=== PATIENT | male | born 1970 ===

== ENCOUNTER 2017-08-06 10:29 | Day surgery (SDC) | payer BC ==
[2017-08-06] VITALS (9 sets, daily range): BP systolic 114–146; BP diastolic 64–89
[~2017-08-06] VITALS: Ht 175.3 cm; Wt 117.9 kg
--- NOTE | 2017-08-06 08:35 | Pre-Procedure Note/Attestation ---
Pre-Procedure Note/Attestation Complete Prior to Procedure Planned Procedure: left Procedure Narrative: left knee scope, medial and lateral meniscectomy and chondroplasty Indications for Procedure Pre-Operative Diagnosis: left knee medial and lateral meniscus tear Attestation I attest that I discussed the nature of the procedure; its benefits; risks and complications; and alternatives (and the risks and benefits of such alternatives ), prior to the procedure, with the patient (or the patient's legal service liaison representative). I attest that, if there was a reasonable possibility of needing a blood transfusion, the patient (or the patient's legal service liaison representative) was given the [facility] standardized written summary, pursuant to the [place] Blood Safety Act ([place] Health and Safety Code # 1645, as amended). I attest that I re-evaluated the patient just prior to the surgery and that there has been no change in the patient's H&P, except as documented below: none MICHI FRY Aug 06, 2017 08:35
[~2017-08-06 10:29] MED LIST: ceFAZolin 1gm in D5W 55ml IVP ONE; celeBREX 200mg Cap **SURGERY PATIENTS ONLY ORAL ONE; oxyCONTIN 20mg tab ORAL ONE
[2017-08-06] MEDS ORDERED: Tylenol #3 tab (300mg/30mg) ORAL PRN (12:30)
[2017-08-06] MEDS ORDERED: HYDROmorphone 1mg/ml Carpuject SUBQ PRN (12:30)
[2017-08-06] MEDS ORDERED: Norco 5mg/325mg tab ORAL PRN (12:30)
[2017-08-06] MEDS ORDERED: D5 1/2NS 1,000 ML IV SCH (12:30)
[2017-08-06] MEDS ORDERED: Propofol 200mg/20ml IV ONE (12:45)
[2017-08-06] MEDS ORDERED: Ropivacaine 5mg/ml Vial 30ml INJ ONE (12:46)
[2017-08-06] MEDS ORDERED: LR 1000ml ONE (13:00)
[2017-08-06] MEDS ORDERED: Midazolam 2mg/2ml Inj ONE (13:00)
[2017-08-06] MEDS ORDERED: Ketorolac 30mg Inj ONE (13:00)
[2017-08-06] MEDS ORDERED: fentaNYL 100 mcg/2 mL IV ONE (13:00)
[2017-08-06] MEDS ORDERED: NS Irrig 4000ml IRRIG ONE ×2 (13:00→13:31)
--- NOTE | 2017-08-06 13:12 | Brief Operative Note ---
Immediate Post Operative Note Operative Note Chief Complaint: left knee pain Pre-op Diagnosis: left knee medial and lateral meniscus tear Procedure: left knee scope, medial and lateral meniscectomy Post-op Diagnosis: same as pre-op Findings: consistent w/pre-op dx studies Surgeon: md bon Granular Operator: milvia nina Anesthesiologist: md vineet Anesthesia: general Specimen: none Complications: none Condition: stable Fluids: ns Estimated Blood Loss: minimal Drains: none Implant(s) used?: No ELIZABETH NINA Aug 06, 2017 13:12
[2017-08-06] MEDS ORDERED: LR 1000ml 1,000 ML IVLG SCH (13:32)
--- NOTE | 2017-08-06 13:32 | Anethesia Preoperative Eval ---
Anesthesia Pre-op PMH/ROS General Date of Evaluation: Aug 06, 2017 Time of Evaluation: 12:48 Anesthesiologist: Ebony ASA Score: ASA 2 Mallampati Score Class I : Soft palate, uvula, fauces, pillars visible Class II: Soft palate, uvula, fauces visible Class III: Soft palate, base of uvula visible Class IV: Only hard plate visible Mallampati Classification: Class III Surgeon: Donn Diagnosis: L knee pain Surgical Procedure: L knee scope Anesthesia History: none Family History: no anesthesia problems Allergies: Coded Allergies: No Known Allergies (Unverified , 08/02/17) Past Medical History Cardiovascular: Denies: HTN, CAD, [place], valve dz, arrhythmia, other Pulmonary: Reports: DORETHA - mashine at home, Denies: asthma, COPD, other Gastrointestinal/Genitourinary: Reports: GERD Neurologic/Psychiatric: Denies: dementia, CVA, depression/anxiety, TIA, other Endocrine: Denies: DM, hypothyroidism, steroids, other HEENT: Denies: cataract (L), cataract (R), glaucoma, POARCH (L), POARCH (R), other Hematology/Immune: Denies: anemia, DVT, bleeding disorder, other Musculoskeletal/Integumentary: Denies: OA, RA, DJD, DDD, edema, other Other: obesity PMH Narrative: as above PSxH Narrative: septoplasty Anesthesia Pre-op Phys. Exam Physician Exam Last Vital Signs Date Time Temp Pulse Resp B/P (MAP) Pulse Ox O2 Delivery O2 Flow Rate FiO2 08/06/17 11:25 98.9 74 18 135/89 96 Room Air Constitutional: NAD Neurologic: CN 2-12 intact Cardiovascular: RRR, no M/R/G Respiratory: CTA Gastrointestinal: other - obesity Airway Exam Mallampati Score: Class III MO: limited Neck: short ROM: limited Teeth: intact Dentures: no upper, no lower Anesthesia Pre-op A/P Labs see chart Studies Pre-op Studies: EKG - NSR Risk Assessment & Plan Assessment: ASA 2 Plan: GA with LMA Status Change Before Surgery: No Pre-Antibiotics Drug: Ancef 2 gr. Given Within 1 Hr of Incision: Yes Time Given: 13:22 ANGIE CAN M.D. Aug 06, 2017 13:32
[2017-08-06] MEDS ORDERED: Ketorolac 30mg Inj IV PRN (13:45)
[2017-08-06] MEDS ORDERED: Hydromorphone 0.5mg/0.5ml inj IVP PRN (13:45)
[2017-08-06] MEDS ORDERED: Meperidine 50mg/ml Inj(FOR RIGORS ONLY) IV PRN (13:45)
[2017-08-06] MEDS ORDERED: DiphenhydrAMINE 50mg/ml Inj IVP PRN (13:45)
--- NOTE | 2017-08-06 14:27 | Immediate Post-Op Evaluation ---
Immediate Post-Op Evalulation Immediate Post-Op Evalulation Procedure: L knee arthroscopy meniscectomy Date of Evaluation: Aug 06, 2017 Time of Evaluation: 14:26 IV Fluids: 1200 Blood Products: none Estimated Blood Loss: min Urinary Output: none Blood Pressure Systolic: 134 Blood Pressure Diastolic: 72 Pulse Rate: 86 Respiratory Rate: 20 O2 Sat by Pulse Oximetry: 99 Temperature (Fahrenheit): 97.7 Pain Score (1-10): 2 Nausea: No Vomiting: No Complications none Patient Status: awake, patent, none Hydration Status: adequate ANGIE CAN M.D. Aug 06, 2017 14:27
--- NOTE | 2017-08-06 14:29 | 48 Hour Post Anesthesia Eval ---
Post Anesthesia Evaluation Procedure: L knee arthroscopy meniscectomy Date of Evaluation: Aug 06, 2017 Time of Evaluation: 14:58 Blood Pressure Systolic: 142 0: 74 Pulse Rate: 68 Respiratory Rate: 22 Temperature (Fahrenheit): 97.4 O2 Sat by Pulse Oximetry: 99 Airway: patent Nausea: No Vomiting: No Pain Intensity: 2 Hydration Status: adequate Cardiopulmonary Status: stable Mental Status/LOC: patient returned to baseline Follow-up Care/Observations: n/a Post-Anesthesia Complications: none Follow-up care needed: ready to discharge ANGIE CAN M.D. Aug 06, 2017 14:29
--- NOTE | 2017-08-06 23:00 | Operative Note - Dictated ---
DATE OF OPERATION: 08/06/2017 PREOP DX: 1. Left knee lateral meniscus tear. 2. Left knee medial meniscus tear. POSTOP DX: 1. Left knee complex tear of the posterior horn and body of the lateral meniscus involving 50% of the lateral meniscus. 2. 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 3. Left knee central trochlear groove chondral damage grade 3/grade 4 measuring 2 x 3 cm in the central portion of the chondral groove. 4. Left knee posterior horn and body of the medial meniscus tearing involving 15% of the posterior horn body of the medial meniscus. 5. Loose fragment in the anterior aspect of the knee in front of the anterior cruciate ligament measuring 7 mm. PROCEDURES: 1. Left knee arthroscopy and extensive intra-articular shaving. 2. Left knee patellofemoral chondroplasty. 3. Left knee partial lateral meniscectomy involving 50% of the posterior horn body of the lateral meniscus. 4. Partial medial meniscectomy involving 15% of posterior horn body of the medial meniscus. 5. Left knee lateral compartment chondroplasty involving tibial plateau. 6. Removal of loose fragment in front of the ACL measuring 7 mm consisting of a chondral loose fragment. SURGEON: Elías Pop M.D. BAR HOST: Lynn Stuart PA-C. Truss Maker was present during the actual operative portion of the case and was important and essential part of the operation. During the operation, the administrative office assistant held and operated the arthroscopic camera for visualization, assisted by manipulating the leg to help with visualization, and helped with essential parts of the repair process as necessary such as operating surgical instruments under surgeon supervision, suture management, and wound closures. ANESTHESIOLOGIST: Bayron Beck M.D. ANESTHESIA: General LMA anesthesia. TOURNIQUET TIME: 25 minutes. EBL: Minimal. COMPLICATIONS: None. SURGICAL INDICATION: Patient is a 47-year-old male who sustained the above injury to his knee. The patient was treated non-operative initially, but this did not alleviate the patients symptoms. Therefore, after discussing all non-surgical and surgical options, and discussing all foreseeable risk and benefits of surgery, the patient opted for surgical treatment as described above. PATIENT POSITIONING: Patient was brought to the operating room table and placed supine. All pressure points were well padded. General Anesthesia was induced and a well padded tourniquet was placed on the thigh. The lateral post was placed and positioned to allow for opening of the medial compartment of the knee without placing pressure over the fibular head. Patients entire leg was prepped and draped in the usual sterile fashion. Time out was performed and preop abx was given and after exsanguinating the lower extremity, the tourniquet was inflated to 275 mm of mercury. EXAMINATION OF THE KNEE UNDER ANESTHESIA: Before prepping and draping the knee and while the patient was relaxed under general anesthesia, the knee was examined for ROM, and anterior and posterior, medial and lateral, posterolateral, and posteromedial instability. Pivot shift testing was performed. There was no evidence of loss of motion or instability and the pivot shift testing was negative. PORTAL PLACEMENT: The lateral portal was placed with the knee flexed to 90 degrees at the level of inferior border of the patella in line with the lateral border of the patella. A cm skin incision was made with an eleven blade, and using a blunt obturator, the capsule was gently penetrated. Sterile saline solution was then infused inside the knee with the aid of a pump set at 35 mm mercury pressure. Under direct visualization, placement of the medial portal was preliminary judged using a spinal needle, and it was subsequently established using the same technique as the lateral portal. Care was given not to injure the cutaneous branches of the medial Saphenous nerve or the subcutaneous veins. DIAGNOSTIC ARTHROSCOPY: The suprapatellar patellar pouch was visualized. There was no evidence of scar tissue or loose fragments. The medial and lateral patellar facets and trochlear groove articular cartilage was visualized. There was some chondral damage underneath the patella and over the central trochlear groove. This was measuring 2 x 3 cm underneath the central trochlear groove. This was grade 2 chondromalacia with some unstable chondral flap. The medial plica shelf and the corresponding medial femoral condyle articular cartilage were visualized. There was extra medial plica shelf. The lateral gutter and the posterolateral corner of the knee were visualized. There were no loose bodies, and the popliteus tendon and other structures of the posterolateral corner of the knee were intact intra-articularly. At this point, the knee was placed in the figure of four position and the lateral compartment was entered. The lateral femoral condyle, lateral tibial plateau, and the anterior, body, and the posterior horn of the lateral meniscus were visualized and probed. There was a large chondral damage over the posterolateral aspect of the knee measuring 2 x 1 cm. This was over the lateral tibial plateau right over the lateral meniscus tear. The lateral meniscus had a significant tear involving 50% of the posterior horn body of the lateral meniscus. The knee was then placed at 90 degree and the ACL and PCL were visualized and probed. The ACL was completely intact on visualization and probing, and it had excellent tension. The PCL was completely intact on visualization and probing and it had excellent tension. The medial compartment was then entered and the medial femoral condyle, medial tibial plateau, and the anterior, body, and the posterior horn of the medial meniscus were visualized and probed. The articular surfaces were intact and devoid of articular cartilage damage. There was a tear of the free edge of the medial meniscus involving 15% of the posterior horn body of the medial meniscus. The medial gutter was visualized. There was no evidence of defect or loose fragments. The scope was then brought back to the patella femoral compartment. OPERATIVE ARTHROSCOPY: At this point, all loose debris and fragments were removed with the use of suction motorized shaver. Specific attention was given to assure all visible loose fragments were irrigated out of the knee joint with pump inflow and cannula outflow system. The loose fragments were identified and visualized. Using combination of the shaver, suction, and graspers, these loose fragments were removed. These loose fragments measured approximately 7 to 10 mm. All debris left behind was removed with combination of cipraino and graspers. The frayed articular cartilage of the undersurface of the patella and the trochlear groove were debrided using a motorized shaver. Suction was used to pull in the loose fragments and flaps of the cartilage and to minimize damage to the intact and well attached portion of the cartilage. This allowed for a smooth surface for the articular cartilage gliding. Attention was given to the thickened medial plica shelf. Using combination of cipriano and baskets, the thickened portion of synovectomy was removed and synovectomy was performed in this fashion. Chondroplasty of the kissing lesion? of the medial femoral condyle was performed to create a smooth surface. The knee was placed through ROM and there was no contact between the thickened plica shelf and the medial femoral condyle. At this point, attention was given to the lateral meniscus. Using combination of baskets and cipriano, the torn portion of the lateral meniscus was removed. Attention was given to remove all displaced and unstable portion of the lateral meniscus while maintaining as much of the functional portion of the meniscus as possible. Approximately, 50% of the posterior horn body of the meniscus was removed in this fashion. The transition between the meniscectomy portion and intact portion of the meniscus was smoothed out with combination of small baskets and cipriano. Excellent transition zone was obtained in this fashion. Care was given to the area of cartilage damage in the lateral compartment. The frayed and loose fragments of articular cartilage were debrided using a motorized shaver. Suction was used to pull in the loose fragments and flaps of the cartilage and to minimize damage to the intact and well attached portion of the cartilage. This allowed for smooth surfaces for the articular cartilage. At this point, attention was given to the medial meniscus. Using combination of baskets and cipriano, the torn portion of the medial meniscus was removed. Attention was given to remove all displaced and unstable portion of the medial meniscus while maintaining as much of the functional portion of the meniscus as possible. Approximately, 15% of the posterior horn body of the medial meniscus was removed in this fashion. The transition between the meniscectomy portion and intact portion of the meniscus was smoothed out with combination of small baskets and cipriano. Excellent transition zone was obtained in this fashion. CONDITION AT DISCHARGE FROM OPERATING ROOM: The knee was irrigated with copious amount of normal saline at the end of the procedure. The scope was removed and the water was drained. The skin edges were re-approximated and sterile dressing was applied. All lap count and instrument counts were correct. Patient tolerated the procedure well without complications and was taken to the recovery room in stable conditions. Elías Pop M.D. DR: DEMETRIUS JOB#: [id number] CC:
== END 2017-08-06 15:25 | disposition home or self-care (01) ==
LOC: SUR 10:29
DX: S83.282A Other tear of lateral meniscus, current injury, left knee, initial encounter (principal); S83.242A Other tear of medial meniscus, current injury, left knee, initial encounter; M23.42 Loose body in knee, left knee; M94.262 Chondromalacia, left knee; G47.33 Obstructive sleep apnea (adult) (pediatric); E66.9 Obesity, unspecified; Z68.38 Body mass index [BMI] 38.0-38.9, adult; K21.9 Gastro-esophageal reflux disease without esophagitis; Z83.3 Family history of diabetes mellitus; X58.XXXA Exposure to other specified factors, initial encounter; Y93.9 Activity, unspecified; Y92.9 Unspecified place or not applicable
CPT/HCPCS: 29881; J0690; J1885; J2250; J2405; J2795; J3010; J7120; 94003; 94150